=== PATIENT | male | born 1940 | race Caucasian/White ===

== ENCOUNTER 2017-10-22 08:48 | Outpatient (CLI) | payer MEDICARE, BC ==
[~2017-10-22] VITALS: Ht 185.4 cm; Wt 106.8 kg
--- NOTE | ~2017-10-22 | OP ---
PATIENT NAME: MICHELL CHAHAL MEDICAL RECORD: [id number] :40 LOCATION:D.CAT ADMISSION DATE: SURGEON: HEENA CLEMENTS MD DATE OF OPERATION: 10/22/2017 PROCEDURES: 1. PTCA stent RCA. 2. Left heart catheterization. 3. Selective coronary angiography. 4. Left ventriculogram. INDICATION: Angina and coronary artery disease. PROCEDURE IN DETAIL: After informed consent was obtained and after a detailed description of the risks, benefits as well as alternative therapies, the patient elected to proceed with angiogram and angioplasty. The right radial area was prepped and draped in normal sterile fashion. Right radial artery was cannulated via modified Seldinger technique with placement of 6-Botswanan sheath. All catheters exchanged through this sheath. FINDINGS: Left ventriculogram was performed in standard 30-degree HARDY view, reveals good cardiac wall motion throughout all segments. Overall ejection fraction estimated at 60%. SELECTIVE CORONARY ANGIOGRAPHY: 1. Left main is with no significant angiographic disease. 2. Left anterior descending has moderate irregularities, but no flow-limiting stenosis. 3. The left circumflex is large, codominant with only mild irregularities, but no flow-limiting stenosis. 4. Right coronary has greater than 70% stenosis in the mid vessel, which is in-stent restenosis followed by 80+ percent stenosis after the previously placed stent in the distal vessel. PTCA STENT OF THE RIGHT CORONARY: Stents used were 2.5 x 12 and 3.5 x 26, both [place] stents. Result was 0% residual stenosis. OVERALL IMPRESSION: Successful percutaneous transluminal angioplasty stent of the right coronary artery going from 90% initial stenosis to 0% residual. TRANSINT:[id number] Voice Confirmation ID: [id number] DOCUMENT ID: [id number] HEENA CLEMENTS MD at 1005 CC: [id number] DICTATION DATE: 10/22/17 1105 DELINQUENT TAX COLLECTION ASSISTANT: 10/22/17 1320 DEP CLI 10/22/17 [place] [id number]
--- NOTE | ~2017-10-22 | HEMODYNAMI ---
PATIENT:MICHELL CHAHAL MEDICAL RECORD: [id number] : 40 LOCATION:[facility] ADMISSION DATE: 10/22/17 Generatedon:10/22/201711:05 Patient name: MICHELL CHAHAL Patient #: [id number] SSN: : 1940 Date of study: 10/22/2017 Page: Of Hemodynamic Procedure Report Patient Data Patient Demographics Procedure consent was obtained First Name: MICHELL Gender: Male Last Name: TIRSO : 1940 Middle Initial: E Age: 77 year(s) Patient #: [id number] Race: Additional ID: [id number] Contact details [address]: [address] [place] [address] State: [place] City: [place] Zip code: [address] Past Medical History Allergies Allergen Reaction Date Comments Reported Sulfa drugs 09/20/2015 Admission Admission Data Admission Date: 10/22/2017 Admission Time: 8:48 Procedure Procedure Types Cath Procedure Diagnostic Procedure LHC LHC w/Coronaries PCI Procedure Coronary Stent Coronary Stent Initial Procedure Description Procedure Date Procedure Date: 10/22/2017 Procedure Start Time: 10:47 Procedure End Time: 11:01 Procedure Staff Name Function Vaibhav Ospina MD Performing Physician Adrianne Grimm RT Monitor Antonia Osorio RT Scrub Chalo Salamanca RN Nurse Morena Wheeler RN Nurse Procedure Data Cath Procedure Fluoroscopy Diagnostic fluoroscopy Total fluoroscopy Time: 4.5 time: 4.5 min min Diagnostic fluoroscopy Total fluoroscopy dose: dose: 1153 mGy 1153 mGy Contrast Material Contrast Material Type Amount (ml) Isovue 300 99 Entry Location Entry Primary Successful Side Size Upsize Upsize Entry Closure العلي ccessful Closure Location (Fr) 1 (Fr) 2 (Fr) Remarks Device Remarks Radial Right 6 Fr Mechanical artery Short Compression Estimated blood loss: 5 ml Diagnostic catheters Device Type Used For End Catheter Placement DIAGNOSTIC [place] 110cm 5 Multi-vessel Fr catheter ([id number]) Angiography Procedure Complications No complications Procedure Medications Medication Administration Route Dosage Oxygen NC 2 l/min Lidocaine 2% added to field 20 Heparin Flush Bag added to field 2 bags (1000units/500ml NS) 0.9% NaCl I.V. 100 ml/hr Radial Cocktail I.A. 1 syringe (Verapomil 2mg/Nitro 400mcg/Heparin 1500units) Versed I.V. 2 mg Fentanyl I.V. 100 mcg Versed I.V. 1 mg Fentanyl I.V. 50 mcg Heparin Bolus I.V. 4000 units Integrilin (Bolus I.V. 9.5 ml 2mg/ml) Plavix P.O. 600 mg Hemodynamics Rest Heart Rate: 67 (bpm) Snapshots Pre Cath Intra NCS Post Cath Vital Signs Time Heart Resp SPO2 etCO2 NIBP (mmHg) Rhythm Pain Sedation Rate (ipm) (%) (mmHg) Status Level (bpm) 10:41:12 64 18 97 0 168/84(138) NSR 0 (11) 10(A) , No pain 10:45:36 60 15 95 21 153/85(128) NSR 0 (11) 10(A) , No pain 10:50:04 54 14 94 15 140/66(114) NSR 0 (11) 9(A) , No pain 10:54:22 64 13 95 22.5 148/81(118) NSR 0 (11) 9(A) , No pain 10:58:47 65 18 96 20.3 143/72(126) NSR 0 (11) 10(A) , No pain 11:03:23 57 19 98 27.8 139/80(117) NSR 0 (11) 10(A) , No pain Medications Time Medication Route Dose Verified Delivered Reason Note s Effectiveness by by 10:39:52 Oxygen NC 2 l/min Vaibhav Mcraeie used for Bhavesh Wheeler RN procedure 10:40:05 Heparin Flush added 2 bags Vaibhav Esposito used for Bag to Bhavesh Ospina MD procedure (1000units/500ml field NS) 10:40:13 0.9% NaCl I.V. 100 Vaibhav Buffie Per physician ml/hr Bhavesh Wheeler RN 10:40:59 Lidocaine 2% added 20ml Vaibhav Esposito for local to vial Bhavesh Ospina MD anesthetic field 10:43:47 Versed I.V. 2 mg Vaibhav Berg for sedation Bhavesh Wheeler RN 10:43:53 Fentanyl I.V. 100 mcg Vaibhav Berg for sedation Bhavesh Wheeler RN 10:48:20 Radial Cocktail I.A. 1 Vaibhav Esposito for (Verapomil syringe Bhavesh Ospina MD vasodilation 2mg/Nitro 400mcg/Heparin 1500units) 10:50:55 Versed I.V. 1 mg Vaibhav Berg for sedation Bhavesh Wheeler RN 10:50:59 Fentanyl I.V. 50 mcg Vaibhav Berg for sedation Bhavesh Wheeler RN 10:53:50 Heparin Bolus I.V. 4000 Vaibhav Berg for veri fied units Bhavesh Wheeler RN anticoagulation with dr ospina 10:56:18 Integrilin I.V. 9.5 ml Vaibhav Berg for Wast ed (Bolus 2mg/ml) Bhavesh Wheeler RN antiplatelet 0.5 ml therapy of vial 11:01:18 Plavix P.O. 600 mg Vaibhav Wheeler RN antiplatelet therapy Procedure Log Time Note 10:23:33 Diagnostic Cath Status : Elective 10::53 Antonai CHOPRA(R) sent for patient. Start room use. 10:23:54 Time tracking: Regular hours (M-F 7:00 - 5:00) 10:23:58 Plan of Care:Hemodynamics will remain stable., Cardiac rhythm will remain stable., Comfort level will be maintained., Respiratory function will remain adequate., Patient/ family verbilizes understanding of procedure., Procedure tolerated without complication., Recovers from procedure without complications.. 10:39:52 Oxygen 2 l/min NC was administered by Morena Wheeler RN; used for procedure; 10:39:52 Patient received from Pre/Post Procedure Room to CCL 2 Alert and oriented. Tansferred to table in Supine position. 10:39:53 Warm blankets applied, and conor hugger turned on for patient comfort. 10:39:54 Correct patient and procedure confirmed by team. 10:39:55 Signed procedure consent form obtained from patient. 10:39:55 ECG and BP/O2 sat monitors applied to patient. 10:39:56 Baseline sample Acquired. 10:39:56 Vital chart was started 10:40:05 Heparin Flush Bag (1000units/500ml NS) 2 bags added to field was administered by Vaibhav Ospina MD; used for procedure; 10:40:06 Rhythm: sinus rhythm 10:40:08 Full Disclosure recording started 10:40:13 0.9% NaCl 100 ml/hr I.V. was administered by Morena Wheeler RN; Per physician; 10:40:13 H&P Date Dictated: 10/22/2017 New H&P dictated by physician.. 10:40:14 Pre-procedure instructions explained to patient. 10:40:15 Pre-op teaching completed and patient verbalized understanding. 10:40:16 Family in waiting room. 10:40:17 Patient NPO since Midnight. 10:40:19 Is the patient allergic to Iodine/contrast media? No. 10:40:20 Was the patient premedicated? No 10:40:21 Is patient on blood thinner?No 10:40:22 Patient diabetic? No. 10:40:25 Previous problem with sedation/anesthesia? No ? 10:40:27 Snore? Yes 10:40:28 Sleep apnea? Yes 10:40:29 Deviated septum? No 10:40:30 Opens mouth fully? Yes 10:40:31 Sticks out tongue? Yes 10:40:37 Airway obstruction? No ? 10:40:59 Lidocaine 2% 20ml vial added to field was administered by Vaibhav Ospina MD; for local anesthetic; 10:41:48 Dentures? No ? 10:41:52 Pre procedure: right dorsailis pedis pulse 2+ Normal; easily identifiable; not easily obliterated 10:41:54 Pre procedure: left dorsailis pedis pulse 2+ Normal; easily identifiable; not easily obliterated 10:41:56 Modified Aravind's test Radial < 7 seconds 10:41:59 Patient pain scale 0/10 ?. 10:42:12 IV patent on arrival in left hand with 0.9% NaCl at [facility]. 10:42:15 Lab results completed and on chart. 10:42:19 Right Radial & Right Groin area was prepped with chlora-prep and draped in sterile fashion 10:42:20 Alarms reviewed by R. N. 10:42:20 Sharps counted by scrub and verified by R.N. 10:42:21 Physician arrived 10:42:22 --------ALL STOP TIME OUT------ 10:42:22 Final Timeout: patient, procedure, and site verified with staff and physician. All members of the team are in agreement. 10:42:24 Right Radial & Right Groin site verified by team. 10:42:26 Physical assessment completed. ASA score P 2 - A patient with mild systemic disease as per Vaibhav Ospina MD. 10:42:30 Sedation plan: IV Moderate Sedation Medication:Versed, Fentanyl 10:42:35 Use device set Radial Dx or PCI 10:42:36 ACIST Syringe (35639) opened to sterile field. 10:42:37 Medline Cath Pack ([id number]) opened to sterile field. 10:42:37 Bag Decanter (2002S) opened to sterile field. 10:42:38 DIAGNOSTIC WIRE .035 260cm J wire (898855) opened to sterile field. 10:42:38 ACIST Hand Control (15808) opened to sterile field. 10:42:39 ACIST Manifold (14434) opened to sterile field. 10:42:39 Tegaderm 4 x 4 (1626W) opened to sterile field. 10:42:40 MBrace Wrist Support ([id number]) opened to sterile field. 10:42:42 SHEATH 6Fr Prelude Radial ([id number]) opened to sterile field. 10:43:47 Versed 2 mg I.V. was administered by Morena Wheeler RN; for sedation; 10:43:53 Fentanyl 100 mcg I.V. was administered by Morena Wheeler RN; for sedation; 10:47:47 Procedure started. 10:47:59 Local anesthetic to right radial artery with Lidocaine 2% by Vaibhav Ospina MD.INITIAL ACCESS ONLY 10:48:09 A 6 Fr Short sheath was inserted into the Right Radial artery 10:48:20 Radial Cocktail (Verapomil 2mg/Nitro 400mcg/Heparin 1500units) 1 syringe I.A. was administered by Vaibhav Ospina MD; for vasodilation; 10:49:00 A DIAGNOSTIC [place] 110cm 5 Fr catheter (558537) was advanced over the wire and used for Multi-vessel Angiography. 10:50:15 LV hemodynamics recorded. 10:50:16 LV gram done using HARDY 10:50:18 Injector settings: Ml/sec: 5, Volume: 15, 10:50:24 EF : 60 % 10:50:28 LCA angiography performed. 10:50:30 Injector settings: Ml/sec: 3, Volume: 6, 10:50:55 Versed 1 mg I.V. was administered by Morena Wheeler RN; for sedation; 10:50:59 Fentanyl 50 mcg I.V. was administered by Morena Wheeler RN; for sedation; 10:51:46 RCA angiography performed. 10:51:49 Injector settings: Ml/sec: 3, Volume: 6, 10:51:53 Catheter removed. 10:52:13 CHOICE PT Extra Support 182cm wire ([id number]) opened to sterile field. 10:52:14 GUIDE 6FR AR 2.0 catheter (YO2HI00) opened to sterile field. 10:52:15 INFLATOR Merit BasixCompak (EK0333) opened to sterile field. 10:53:36 Proceeding to intervention. 10:53:47 6 Fr ar 2 guide catheter was inserted over the wire 10:53:50 Heparin Bolus 4000 units I.V. was administered by Morena Wheeler RN; for anticoagulation; verified with dr ospina 10:53:52 choice pt wire advanced. 10:54:26 Wire advanced across lesion. 10:56:18 Integrilin (Bolus 2mg/ml) 9.5 ml I.V. was administered by Morena Wheeler RN; for antiplatelet therapy; Wasted 0.5 ml of vial 10:57:06 Place stent Inflation Number: 1 A ACROL RX 2.5 x 12 stent ([id number]) was prepped and advanced across the Dist RCA. The stent was deployed at 13 JOHN for 0:10 (min:sec). 10:57:11 Inflation number: 2 The stent balloon was then re-inflated across the Dist RCA to 13 JOHN for 0:10 (min:sec). 10:57:19 Inflation number: 3 The stent balloon was then re-inflated across the Dist RCA to 17 JOHN for 0:10 (min:sec). 10:57:38 Stent catheter was removed intact over wire. 10:58:41 Place stent Inflation Number: 1 A CAROL RX 3.5 x 26 stent ([id number]) was prepped and advanced across the Mid RCA. The stent was deployed at 17 JOHN for 0:10 (min:sec). 10:59:27 Stent catheter was removed intact over wire. 10:59:28 Wire removed. 10:59:28 Guide catheter removed. 10:59:38 TR BAND Standard ([id number]) opened to sterile field. 10:59:45 Sheath removed intact; hemostasis achieved with Mechanical Compression to the Right Radial artery. 10:59:47 Procedure ended.(Physican Out) 11:00:27 Fluoroscopy time 04.50 minutes. 11:00:31 Fluoroscopy dose: 1153 mGy 11:00:31 Flurop Dose total: 1153 11:00:38 Contrast amount:Isovue 300 99ml. 11:00:39 Sharps counted by scrub and verified by R.N. 11:00:43 TR band inflated with 10cc of air. 11:00:44 Insertion/operative site no bleeding no hematoma. 11:00:48 Post right radial artery:stable 11:00:50 Post Procedure Pulses reassessed and unchanged 11:00:52 Post procedure rhythm: unchanged. 11:00:55 Estimated blood loss: 5 ml 11:00:56 Post procedure instruction explained to patient.Patient verbalizes understanding. 11:00:56 Patient needs reinforcement of post procedure teaching. 11:01:11 Procedure type changed to Cath procedure, Diagnostic procedure, LHC, LHC w/Coronaries, PCI procedure, Coronary Stent, Coronary Stent Initial 11:01:12 Procedure and supply charges have been captured, reviewed, submitted and are correct. 11:01:17 Procedure Complication : No complications 11:01:18 Plavix 600 mg P.O. was administered by Morena Wheeler RN; for antiplatelet therapy; 11:01:19 Vital chart was stopped 11:01:20 See physician's report for complete and final results. 11::22 Report given to Pre/Post Procedure Room. 11:01:24 Patient transfered to Pre/Post Procedure Room with Stretcher. 11::26 Procedure ended. 11::26 Full Disclosure recording stopped 11:01:33 ACC-PCI Only Patient was given prescriptions, or instructed by Vaibhav Ospina MD to start/continue the following medications upon discharge: Plavix 11:01:34 End room use (Document Last) Intervention Summary Intervention Notes Time ActionType Lesion and Equipment Used Action# Pressure Duration Attributes 10:57:06 Place stent Dist RCA CAROL RX 2.5 x 1 13 00:10 12 stent ([id number]) 10:57:11 Reinflate Dist RCA CAROL RX 2.5 x 2 13 00:10 stent 12 stent balloon ([id number]) 10:57:19 Reinflate Dist RCA CAROL RX 2.5 x 3 17 00:10 stent 12 stent balloon ([id number]) 10:58:41 Place stent Mid RCA CAROL RX 3.5 x 1 17 00:10 26 stent ([id number]) Device Usage Item Name Manufacture Quantity Catalog Number Hospital Part Current Minimal Lot# / Charge Number Stock Stock Serial# Code ACIST Syringe Acist 1 64914 [id number] 083894 016794 20 (11100) Medical Systems Inc Medline Cath Cardinal 1 [id number] 983900 79070 511830 5 Pack Health ([id number]) Bag Decanter Microtek 1 2001S 527711 19427 931989 5 (2001S) Medical Inc. DIAGNOSTIC WIRE St [place] 1 516221 349764 230808 794911 30 .035 260cm J wire (713942) ACIST Hand Acist 1 72126 761104 511415 108711 5 Control (86720) Medical Systems Inc ACIST Manifold Acist 1 66069 587617 451968 224457 5 (72102) Medical Systems Inc Tegaderm 4 x 4 3M 1 1626W 816296 356265 793808 5 (1626W) MBrace Wrist Advanced 1 140-0250-00 010543 09664 213260 5 Support Vascular (003244964) Dynamics SHEATH 6Fr Merit 1 [id number] 962101 079109 198173 5 Prelude Radial Medical ([id number]) DIAGNOSTIC Terumo 1 40-9701 417097 642582 140859 5 [place] 110cm 5 Fr catheter (920652) CHOICE PT Extra Randolph 1 [id number] 672870 803533 896281 5 Support 182cm Scientific wire ([id number]) GUIDE 6FR AR Medtronic 1 [id number] 330314 35360 003719 1 2.0 catheter ([id number]) INFLATOR Merit Merit 1 PW2513 943522 834730 272583 15 ALTHIAgaUnruly Medical (PY3330) CAROL RX 2.5 x Medtronic 1 [id number] 767298 4778703 384268 5 [id number] 12 stent ([id number]) ACROL RX 3.5 x Medtronic 1 [id number] 959047 9965224 946231 5 [id number] 26 stent ([id number]) TR BAND Terumo 1 [id number] 675462 016899 382040 40 Standard ([id number]) Signature Audit [place] Stage Time Signature Unsigned Intra-Procedure 10/22/2017 Adrianne Grimm 11:05:31 AM RT(R) Signatures Monitor : Adrianne Grimm RT Signature : Date : Time : [place] [id number] [place] [address]
--- NOTE | ~2017-10-22 | HP ---
PATIENT: MICHELL CHAHAL MEDICAL RECORD: [id number] ACCOUNT: [id number] LOCATION:[facility] : 40 ADMISSION DATE: 10/22/17 HISTORY AND PHYSICAL EXAMINATION DIAGNOSES: 1. Angina. 2. Abnormal nuclear stress test. 3. Coronary artery disease. 4. Previous coronary PTCA stent. 5. Hypertension. 6. Hyperlipidemia. HISTORY OF PRESENT ILLNESS: Vincenzo presents with increasing anginal symptomatology. Nuclear stress test revealed reversible ischemia inferiorly. He is now brought for cardiac catheterization. REVIEW OF SYSTEMS: The patient reports easy bruising but reports no swollen glands. The patient reports no fever, no night sweats, no significant weight gain, no significant weight loss. No significant exercise tolerance. The patient reports no dry eyes, no irritation, no vision change. Patient reports no difficulty hearing and no ear pain. Patient reports no frequent nose bleeds or nose and sinus problems. Patient reports on arm pain on exertion. No shortness of breath while lying down. No history of heart murmur. Patient reports no cough, no wheezing or coughing up blood. Patient reports no abdominal pain, no vomiting. Normal appetite. No diarrhea and not vomiting blood. No nausea and no constipation. Patient reports no incontinence. No difficulty urinating. No hematuria. No increased frequency. Patient reports no muscle aches. No weakness, no arthralgias, no back pain. No swelling of the extremities. Patient reports no abnormal mole, no jaundice, no rashes. Reports no loss of consciousness. No weakness and no numbness. No seizures, dizziness, or headaches. The patient reports no depression, no sleep disturbance, feeling safe in a relationship and no alcohol abuse. Patient reports on fatigue. Reports no runny nose or sinus pressure. No itching, no hives, and no frequent sneezing. PHYSICAL EXAMINATION: GENERAL APPEARANCE: Well-nourished, well-developed, appears stated age. Level of distress, comfortable. PSYCHIATRIC: Mental status, alert, normal affect. Orientation, oriented to time, place and person. EYES: Lids and conjunctiva, noninjected. No discharge, no pallor. ENT: Lips, teeth, gums, normal dentition. Oropharynx, no cyanosis, no pallor. NECK: Carotid arteries, bilateral normal upstroke, no bruits, no thrills. JUGULAR VEINS: No jugular venous pressure or distention. CERVICAL LYMPH NODES: Nontender, nonenlarged. THYROID: Not enlarged. Nontender. No nodules. LUNGS: Respiratory effort, unlabored. CHEST: Normal curvature. No thoracic deformity. No chest wall tenderness. Percussion, resonant. Auscultation, clear. No wheezes, no rales, no rhonchi. CARDIOVASCULAR: Precordial exam, nondisplaced. No heaves or pericardial thrills. Rate and rhythm, regular. Heart sounds, normal S1, normal S2. No S3, no gallop, no rub. Systolic murmur, not heard. Diastolic murmur, not heard. EXTREMITIES: No cyanosis, no edema. Peripheral pulses, full and equal in all extremities, except as noted. No bruits appreciated. HISTORY AND PHYSICAL [id number] MICHELL CHAHAL ABDOMEN: Soft, nondistended. Normal aorta. No bruit. Nontender. No masses. Liver, nontender, no hepatomegaly. Spleen, nontender, no splenomegaly. MUSCULOSKELETAL: No joint tenderness. No joint swelling. No erythema. NEUROLOGICAL: Normal gait, normal strength, normal tone. SKIN: Warm and dry. OVERALL IMPRESSION: Anginal symptomatology, high likelihood of recurrent hemodynamically significant coronary artery disease. We will proceed with coronary angiography. Further care depends upon the findings of the angiography. TRANSINT:[id number] Voice Confirmation ID: [id number] DOCUMENT ID: [id number] HEENA CLEMENTS MD at 1005 CC: [id number] DICTATION DATE: 10/22/17 1222 POLYMER TESTER: 10/22/17 1232 DEP CLI 10/22/17 [place] [id number] [place] [id number]
[~2017-10-22 08:48] MED LIST: BAYER CHEWABLE81 MG PO; FLUTICASONE PRO16 GM NASAL; MULTIPLE VITAMI1 TA1 PO; PACERONE200 MG PO; PLAVIX75 MG PO; ZOCOR20 MG PO
[2017-10-22] MEDS ORDERED: LIPITOR40 MG PO (09:48)
[2017-10-22 09:57] VITALS: BP 156/81; Ht 185.4 cm; Wt 106.8 kg
[2017-10-22 10:36] LABS: BASOPHILS 0.2 % (0-2); EOSINOPHILS 0.3 % (0-7); HEMATOCRIT 39.1 % (42.0-54.0); HEMOGLOBIN 13.4 g/dL (13.5-17.5); IMMATURE GRANULOCYTES 0.2 % (0-5); LYMPHOCYTES 20.2 % (15-50); MCH 32.5 pg (26.0-34.0); MCHC 34.3 g/dL (31.0-37.0); MCV 94.9 fL (80.0-100.0); MEAN PLATELET VOLUME 9.8 fL (7.4-10.4); MONOCYTES 8.2 % (2-11); NEUTROPHILS 70.9 % (40-80); PLATELET COUNT 177 10x3/uL (130-400); RBC 4.12 10x6/uL (4.20-6.10); RDW 14.3 % (11.5-14.5); WBC 6.6 10x3/uL (4.8-10.8)
[2017-10-22 10:53] LABS: CALC OSMOLALITY 287 mosm/kg (275-300); CALCIUM 8.7 mg/dL (8.5-10.1); CARBON DIOXIDE 24.1 mmol/L (21.0-32.0); CHLORIDE - SERUM 110 mmol/L (98-107); GLUCOSE 106 mg/dL (74-106); POTASSIUM - SERUM 3.6 mmol/L (3.5-5.1); SODIUM 144 mmol/L (136-145); UREA NITROGEN 14 mg/dL (7-18); eGFR NON AFRICAN AMERICAN 77 mL/min (90-120)
[2017-10-22] MEDS ORDERED: PLAVIX75 MG PO (11:30)
== END 2017-10-22 15:30 ==
LOC: D.CATH 08:48
PROVIDERS: Internal Medicine Interventional Cardiology
DX: I25.119 Atherosclerotic heart disease of native coronary artery with unspecified angina pectoris (principal); E78.5 Hyperlipidemia, unspecified; I10 Essential (primary) hypertension; R94.30 Abnormal result of cardiovascular function study, unspecified; Z95.5 Presence of coronary angioplasty implant and graft; Z01.812 Encounter for preprocedural laboratory examination
CPT/HCPCS: 93458; C9600